=== PATIENT | male | born 1940 | race Caucasian/White ===

== ENCOUNTER → 2019-09-10 13:24 | Outpatient (BNVA) | payer MEDICARE, OTHER, SELFPAY | PROVIDERS: Family Provider Family Medicine; PCP Family Medicine; Visit Provider Emergency Medicine | DX: R68.89 Other general symptoms and signs (principal); J40 Bronchitis, not specified as acute or chronic | CPT/HCPCS: 87400; 87635 ==

== ENCOUNTER 2019-09-13 14:42 | Observation (INO) | payer OTHER, MEDICARE, SELFPAY ==
[2019-09-13] VITALS (8 sets, daily range): BP systolic 125–147; BP diastolic 66–83; PULSE 59–69; RESP 16–18; TEMP 36.6; O2SAT 96–100; BMI 34.0
--- NOTE | 2019-09-13 14:48 | XRR_ITS ---
PROCEDURE INFORMATION: Exam: XR Chest, 1 View Exam date and time: 09/13/2019 2:49 PM Age: 79 years old Clinical indication: Chest pain; Additional info: Syncop TECHNIQUE: Imaging protocol: XR of the chest Views: 1 view. COMPARISON: CR Ribs LEFT w PA Chest [id number] 05/01/2019 11:04 AM FINDINGS: Lungs: 2.0 cm pulmonary nodule or scar in midportion left lung which appears to have increased in size and density. CT chest may be helpful for complete evaluation. Pleural space: Unremarkable. No pleural effusion. No pneumothorax. Heart/Mediastinum: Unremarkable. No cardiomegaly. Bones/joints: Unremarkable. XR/XR chest 1V portable [id number] IMPRESSION: 2.0 cm pulmonary nodule or scar in midportion left lung which appears to have increased in size and density. CT chest may be helpful for complete evaluation.
--- NOTE | 2019-09-13 14:49 | W.ED.SYNCOPE ---
HPI - Syncope General: Chief Complaint: Syncope Stated Complaint: SYNCOPE Time Seen by Provider: 09/13/19 14:48 Source: patient and EMS Mode of arrival: EMS Limitations: no limitations History of Present Illness: HPI narrative: 79-year-old male who states he had 2 new medicines added last week and states he has had 4 syncopal events since then. States that he just feels lightheaded and will pass out. He states today he was getting some out of closet and felt lightheaded and woke up in the floor. He states he has hit his head when he is done this. He denies any chest pain. MD complaint: loss of consciousness Onset (ago): hour(s) -: minutes(s) Prodromal symptoms: lightheaded Associated symptoms: Deny abdominal pain, chest pain, fever(s), headache(s) or nausea Review of Systems Const: Denies: fever, chills, body aches or change in appetite Eyes: Denies: blurry vision or eye discomfort ENMT: Denies: throat pain or dental pain Card: Reports: syncope; Denies: chest pain Resp: Denies: shortness of breath GI: Denies: abdominal pain, nausea, vomiting or diarrhea : Denies: painful urination Musc: Denies: neck pain or back pain Skin/Breast: Denies: rash Neuro: Denies: headache Psych: Denies: depression Dawson/Lymph: Denies: easy bruising All/Imm: Denies: hives [facility] PFSH: Social History (Updated 09/10/19 @ 13:20 by Kerri Cunningham [facility]) Smoking and tobacco status: former smoker Alcohol intake: never Physical Exam Const: COMMON NORMALS: no apparent distress, oriented x3 and healthy appearing HENMT: COMMON NORMALS: normocephalic and head/scalp atraumatic HEAD & SCALP: normocephalic and atraumatic Eye: COMMON NORMALS: PERRL and EOMs intact bilaterally PUPIL: Yes PERRL Neck/C-Spine: COMMON NORMALS: full ROM and supple Chest: COMMONS NORMALS: inspection of chest normal and palpation of chest normal Resp: COMMON NORMALS: normal respiratory effort, no retractions, no use of accessory muscles and clear to auscultation bilaterally AUSCULTATION: clear to auscultation bilaterally Cardio: COMMON NORMALS: regular rate, regular rhythm and no murmurs RATE: regular rate RHYTHM: regular rhythm GI: COMMON NORMALS: normal to inspection, nondistended, normoactive bowel sounds, soft to palpation, non-tender and no masses PALPATION: Yes soft Extremity: COMMON NORMALS: normal to inspection and full ROM Neuro: COMMON NORMALS: oriented x3, moves all extremities and no focal motor deficits Psych: COMMON NORMALS: mental status grossly normal, thought process normal and cooperative THOUGHT PROCESS: normal thought process Skin: COMMON NORMALS: no rashes or lesions noted and no wounds GENERAL SKIN EXAM: no rashes or lesions noted Course Vital Signs: Vital signs: Vital Signs Temperature 97.8 F 09/13/19 14:51 Pulse Rate 59 L 09/13/19 16:00 Respiratory Rate 16 09/13/19 16:00 Blood Pressure 127/66 09/13/19 16:00 Pulse Oximetry 99 09/13/19 16:00 MDM - Syncope MDM Narrative: Medical decision making narrative: Patient presents here with multiple syncopal events over the last week that could be due to starting of his new diuretic and dehydration. Patient has been well-appearing here and I spoke to hospitalist will admit for observation as he has had multiple syncopal events. He has no signs of pulmonary embolism. Patient CT head is negative. Lab Data: Labs: Lab Results 09/13/19 09/13/19 09/13/19 Range/Units 15:07 15:07 15:07 WBC 12.8 H (4.0-10.0) 10^3/ uL RBC 5.40 H (4.1-5.3) 10^6/u L Hgb 15.8 (11.7-16.6) g/dL Hct 48.5 (42.0-52.0) % MCV 89.8 (80-94) fL MCH 29.3 (28.0-34.0) pg MCHC 32.6 (30.0-36.0) g/dL RDW 13.6 (12.1-15.1) % Plt Count 201 (130-400) 10^3/c mm MPV 10.5 H (7.4-10.4) fL Neut % (Auto) 73.9 % Lymph % (Auto) 11.7 % [place] % (Auto) 11.6 % Eos % (Auto) 0.9 % Baso % (Auto) 0.2 % Neut # (Auto) 9.4 H (1.8-7.7) 10^3/u L Lymph # (Auto) 1.5 (0.8-4.8) 10^3/u L [place] # (Auto) 1.5 H (0.2-0.9) 10^3/u L Eos # (Auto) 0.1 (0.0-0.8) 10^3/u L Baso # (Auto) 0.0 (0.0-0.1) 10^3/u L Nucleated RBC % (a uto) 0 % Nucleated RBCs # 0.0 /100WBC PT 14.30 H (10.5-13.3) SECO NDS INR 1.07 (0.8-1.2) Sodium 134 L (136-145) mmol/L Potassium 3.5 (3.5-5.1) mmol/L Chloride 87 L (98-107) mmol/L Carbon Dioxide 32 H (22-29) mmol/L Anion Gap 18.5 (5-19) BUN 64 H (8-23) mg/dL Creatinine 2.3 H (0.7-1.2) mg/dL Glucose 176 H (65-115) mg/dL Calculated Osmolal ity 281 L (285-295) mOsm/k g Calcium 9.6 (8.5-10.5) mg/dL Magnesium 2.9 H (1.7-2.3) mg/dL Total Bilirubin 0.6 (0.15-1.2) mg/dL AST 18 (0-40) U/L ALT 15 (0-41) U/L Alkaline Phosphata se 106 (40-130) IU/L Troponin T Baselin e (0-15) ng/mL Total Protein 7.2 (6.6-8.7) g/dL Albumin 4.4 (3.5-5.2) g/dL Globulin 2.8 (1.3-4.6) g/dL 09/13/19 Range/Units 15:07 WBC (4.0-10.0) 10^3/ uL RBC (4.1-5.3) 10^6/u L Hgb (11.7-16.6) g/dL Hct (42.0-52.0) % MCV (80-94) fL MCH (28.0-34.0) pg MCHC (30.0-36.0) g/dL RDW (12.1-15.1) % Plt Count (130-400) 10^3/c mm MPV (7.4-10.4) fL Neut % (Auto) % Lymph % (Auto) % [place] % (Auto) % Eos % (Auto) % Baso % (Auto) % Neut # (Auto) (1.8-7.7) 10^3/u L Lymph # (Auto) (0.8-4.8) 10^3/u L [place] # (Auto) (0.2-0.9) 10^3/u L Eos # (Auto) (0.0-0.8) 10^3/u L Baso # (Auto) (0.0-0.1) 10^3/u L Nucleated RBC % (a uto) % Nucleated RBCs # /100WBC PT (10.5-13.3) SECO NDS INR (0.8-1.2) Sodium (136-145) mmol/L Potassium (3.5-5.1) mmol/L Chloride (98-107) mmol/L Carbon Dioxide (22-29) mmol/L Anion Gap (5-19) BUN (8-23) mg/dL Creatinine (0.7-1.2) mg/dL Glucose (65-115) mg/dL Calculated Osmolal ity (285-295) mOsm/k g Calcium (8.5-10.5) mg/dL Magnesium (1.7-2.3) mg/dL Total Bilirubin (0.15-1.2) mg/dL AST (0-40) U/L ALT (0-41) U/L Alkaline Phosphata se (40-130) IU/L Troponin T Baselin e 65 H (0-15) ng/mL Total Protein (6.6-8.7) g/dL Albumin (3.5-5.2) g/dL Globulin (1.3-4.6) g/dL Imaging Data^: CXR: Attestation: I personally reviewed and interpreted this imaging study as follows: My impression: no acute abnormality CT Head: Radiologist's impression: [facility] [address] [place] [address] CT Scan Report Signed Patient: Edward Covington Unit #: [id number] : 1940 Age/Sex: 79 / M ADM Date: 09/13/19 Loc: ER Room/Bed: Attending Dr: Ordering Provider/Ordering MD: Josias Poon MD Date of Service: 09/13/19 Procedure(s): CT head wo con* [id number] Accession Number(s): [id number] Report Number: [id number] PROCEDURE INFORMATION: Exam: CT Head Without Contrast Exam date and time: 09/13/2019 2:49 PM Age: 79 years old Clinical indication: Syncope and collapse TECHNIQUE: Imaging protocol: Computed tomography of the head without contrast. Radiation optimization: All CT scans at this facility use at least one of these dose optimization techniques: automated exposure control; mA and/or kV adjustment per patient size (includes targeted exams where dose is matched to clinical indication); or iterative reconstruction. COMPARISON: No relevant prior studies available. RADIATION DOSE METRICS: Total DLP: 759.33 mGy-cm FINDINGS: Brain: Mild to moderate cerebral atrophy and ischemic leukoencephalopathy. Ventricles: Normal. No ventriculomegaly. Bones/joints: Unremarkable. No acute fracture. Sinuses: Visualized sinuses are unremarkable. No fluid levels. Mastoid air cells: Visualized mastoid air cells are well aerated. Soft tissues: Unremarkable. Vasculature: Severe calcified intracranial atherosclerotic vessel disease. CT/CT head wo con* [id number] IMPRESSION: No acute intracranial findings. EKG Data^: EKG 1: Attestation: I personally reviewed and interpreted this EKG as follows: EKG interpretation date: 09/13/19 EKG interpretation time: 15:23 Interpretation: afib hr [address] or t wave abnormalities qrs 97 qtc 412 Discharge Plan Discharge Patient Disposition: Admitted As Inpatient Clinical Impression: Syncope Qualifiers: Syncope type: unspecified Qualified Code(s): R55 - Syncope and collapse Condition: Stable Referrals: Carmelo Leger [Primary Care Provider] - Coding Level of Care Code ED Bilingual Research Interviewer for Chg Fwd Exam Comprehensive
[2019-09-13 15:20] LABS: Basophils % 0.2 %; Eosinophils # 0.1 10^3/uL (0.0-0.8); Eosinophils % 0.9 %; Hematocrit 48.5 % (42.0-52.0); Hemoglobin 15.8 g/dL (11.7-16.6); Lymphocytes # 1.5 10^3/uL (0.8-4.8); Lymphocytes % 11.7 %; Mean Corpuscular HGB Conc 32.6 g/dL (30.0-36.0); Mean Corpuscular Hemoglobin 29.3 pg (28.0-34.0); Mean Corpuscular Volume 89.8 fL (80-94); Mean Platelet Volume 10.5 fL (7.4-10.4); Monocytes # 1.5 10^3/uL (0.2-0.9); Monocytes % 11.6 %; Neutrophils # 9.4 10^3/uL (1.8-7.7); Neutrophils % 73.9 %; Nucleated Red Blood Cells % 0 %; Platelet Count 201 10^3/cmm (130-400); Red Cell Distribution Width 13.6 % (12.1-15.1); White Blood Count 12.8 10^3/uL (4.0-10.0)
[2019-09-13 15:37] LABS: Troponin(5th) Baseline 65 ng/mL (0-15)
[2019-09-13 15:45] LABS: INR 1.07 (0.8-1.2)
[2019-09-13 15:46] LABS: Alanine Aminotransferase 15 U/L (0-41); Albumin Level 4.4 g/dL (3.5-5.2); Alkaline Phosphatase 106 IU/L (40-130); Anion Gap 18.5 (5-19); Aspartate Amino Transferase 18 U/L (0-40); Blood Urea Nitrogen 64 mg/dL (8-23); Calcium 9.6 mg/dL (8.5-10.5); Carbon Dioxide 32 mmol/L (22-29); Chloride 87 mmol/L (98-107); Globulin 2.8 g/dL (1.3-4.6); Glucose 176 mg/dL (65-115); Magnesium 2.9 mg/dL (1.7-2.3); Osmolality Calculated 281 mOsm/kg (285-295); Potassium 3.5 mmol/L (3.5-5.1); Sodium 134 mmol/L (136-145); Total Bilirubin 0.6 mg/dL (0.15-1.2); Total Protein 7.2 g/dL (6.6-8.7)
[2019-09-13] MEDS: sodium chloride 0.9% 500 ML IV (16:11)
--- NOTE | 2019-09-13 16:44 | USCV_ITS ---
Edward Covington Age: 79 Gender: M : 1940 Exam Date: 09/13/2019 17:02 Ordering Phys: Gregorio Herbert MD Technologist: Ashly Stanley Exam Location: [facility] Indication: CHF BP: / HR: Rhythm: Sinus Technical Quality: Suboptimal MEASUREMENTS (Male / Female) Normal Values 2D ECHO LV Diastolic Diameter PLAX 2.4 cm 4.2 - 5.9 / 3.9 - 5.3 cm LV Systolic Diameter PLAX 1.8 cm LV Chamber Size 3.4 cm IVS Diastolic Thickness 1.4 cm 0.6 - 1.0 / 0.6 - 0.9 cm IVS Systolic Thickness 1.9 cm LVPW Diastolic Thickness 1.0 cm 0.6 - 1.0 / 0.6 - 0.9 cm LVPW Systolic Thickness 1.3 cm RV Chamber Size 2.6 cm LVOT Diameter 2.1 cm LV Ejection Fraction 2D Teich 56.3 % LA Diameter 5.7 cm LA Width 3.2 cm LA Height 5.3 cm RA Width 3.2 cm RA Height 5.5 cm Aorta at Sinotubular Diameter 3.0 cm M-MODE LV Diastolic Diameter MM 4.8 cm 4.2 - 5.9 / 3.9 - 5.3 cm LV Systolic Diameter MM 3.1 cm LV Ejection Fraction MM Teich 63.6 % IVS Diastolic Thickness MM 1.3 cm 0.6 - 1.0 / 0.6 - 0.9 cm IVS Systolic Thickness MM 1.5 cm LVPW Diastolic Thickness MM 1.2 cm 0.6 - 1.0 / 0.6 - 0.9 cm LVPW Systolic Thickness MM 1.7 cm RV Diastolic Diameter MM 1.6 cm Aortic Annulus Diameter 4.0 cm LA Ao Ratio MM 1.4 DOPPLER AV Peak Velocity 90.0 cm/s LVOT Peak Velocity 80.0 cm/s AV Area Cont Eq vti 3.8 cm squared AV Area Cont Eq pk 3.2 cm squared MV Area PHT 3.3 cm squared MV E' Velocity 93.0 cm/s TV Peak E Velocity 63.0 cm/s Right Atrial Pressure 3.0 mmHg PV Peak Velocity 101.0 cm/s RV Acceleration Time 0.1 s RV Ejection Time 0.3 s RV AcT/ET 0.3 FINDINGS Left Ventricle Normal left ventricular cavity size. Normal left ventricular systolic function. No regional wall motion abnormalities. Left ventricular ejection fraction is estimated at 63 %. Grade I/IV diastolic dysfunction (abnormal relaxation filling pattern), normal to mildly elevated filling pressures. Right Ventricle The right ventricle is normal in size and function. Right Atrium The right atrium is normal in size. Left Atrium The left atrium is normal in size. Mitral Valve Structurally normal mitral valve without significant stenosis or prolapse. There is no mitral regurgitation. Aortic Valve Structurally normal aortic valve without significant sclerosis or stenosis. There is no aortic regurgitation. Tricuspid Valve Structurally normal tricuspid valve without significant stenosis or regurgitation. Pulmonary artery systolic pressure is normal. Pulmonic Valve Structurally normal pulmonic valve without significant stenosis. There is no pulmonic regurgitation. Pericardium Normal pericardium without effusion. Aorta Normal ascending aorta dimension. CONCLUSIONS 1-Normal left ventricular cavity size. Normal left ventricular systolic function. No regional wall motion abnormalities. Left ventricular ejection fraction is estimated at 63 %. Grade I/IV diastolic dysfunction (abnormal relaxation filling pattern), normal to mildly elevated filling pressures. 2-There is no pericardial effusion. 3-No significant valve abnormalities. 4-Right atrial pressure is around 5 mm of mercury. 5-There are no prior echocardiogram studies to compare. Gregorio Allen MD (Electronically Signed) Final Date: 14 Sep 2019 13:55 S
--- NOTE | 2019-09-13 16:48 | ECG_ITS ---
Measurements Intervals [place] Rate: 63 P: SD: 0 QRS: 24 QRSD: 97 T: 48 QT: 405 QTc: 415 ATRIAL FIBRILLATION ABNORMAL RHYTHM ECG No previous ECG available for comparison Electronically Signed On 09-13-2019 16:24:19 CDT by Gregorio Allen M.D. [email or web address]
--- NOTE | 2019-09-13 16:59 | PM.HP ---
Providers/Chief Complaint Primary Care Provider: Carmelo Leger Chief Complaint: SYNCOPE History of Present Illness Edward Covington is a 79 year old male with past medical history of CKD, atrial fibrillation, on chronic Eliquis, type 2 diabetes mellitus, BPH, laminectomy, dyslipidemia who presented to the ER today after having at least 4 episodes of fall associated with loss of consciousness in the last 10 days. As per patient prior to be falls he had visited his senior design engineering specialist in [place] on August 27 and he was prescribed 2 new medications which were Lyrica and metolazone. He started taking these medications from September 03. He was supposed to be taking metolazone once a week but he was taking it daily as per the instructions on the medication bottle. He had his first fall on September 09. During this time on September 08 he has not visited [facility] clinic for flulike symptoms and was tested for flu COVID-19 and were negative. He was also prescribed dextromethorphan and pseudoephedrine at the clinic which he had not taken till now. All the falls have been unwitnessed. As per the patient most of her falls are followed by loss of consciousness which is transient for 2 to 3 minutes. He does not think this was associated with seizure-like activity, frothing from mouth, bowel or bladder accidents he has noticed dizziness prior to the falls. He denies of having any palpitations, oral flashes of light, headache, chest pain prior to the fluids. Upon regaining consciousness he is never confused more than his baseline but always have mild weakness in his legs sometimes bilateral sometimes only in the left leg. During this falls he has hit his head twice. He has not had bleeding from anywhere. In the ER he was found to have a normal vital signs, blood work showed normal white count and hemoglobin with creatinine of 2.3 with baseline creatinine of 1.9-2.0. His blood pressures at home have been running on the low side since he started taking metolazone. He states his blood pressure at home has been running in 90 systolics. Heart rate has remained stable at around 60s. Review of Systems Const: Denies: fever, chills, body aches, change in appetite, malaise, night sweats, diaphoresis, change in sleep pattern, daytime sleepiness or snoring Eyes: Denies: change in vision, blurry vision, photophobia, eye discomfort or eye discharge ENMT: Denies: throat pain, enlarged tonsils, hoarseness, mouth pain, oral sores/lesions, dry mouth, tinnitus, nasal congestion or post nasal drip Card: Denies: chest pain, palpitations, irregular heart rhythm, edema, swelling of feet/ankles, lightheadedness, syncope, pre-syncope, shortness of breath on exertion, shortness of breath when lying down, leg pain with exertion or bluish discoloration of hands/feet Resp: Denies: shortness of breath, productive cough, non-productive cough, wheezing, stridor, pain on inspiration, change in phlegm color, coughing up blood or chest congestion GI: Denies: abdominal pain, nausea, vomiting, vomiting blood, coffee grounds in vomit, difficulty swallowing, heartburn/indigestion, diarrhea, constipation, bloating, cramping, change in bowel habits, painful bowel movements, blood in stool or black tarry stool : Denies: flank pain, difficulty urinating, painful urination, urinary frequency, urinary urgency, urinary hesitancy, urinary dribbling, difficulty starting urination, change in urine stream, nighttime urination or blood in urine Musc: Denies: neck pain, back pain, extremity pain, joint pain, joint swelling, redness, joint stiffness or limited range of motion Neuro: Reports: weakness in extremities, frequent falls, dizziness and confusion; Denies: headache, numbness in extremities, changes in sensation, lack of coordination, difficulty walking, vertigo, slurred speech, difficulty communicating thoughts or seizure-like activity Psych: Denies: anxiety, depression, mood swings, panic attacks, hopelessness or irritability Endo: Denies: excessive urination, excessive thirst, tired all the time, cold intolerance, excessive sweating, flushing or heat intolerance Dawson/Lymph: Denies: easy bruising or easy bleeding All/Imm: Denies: tongue swelling, facial swelling or acute wheezing Medications/Allergies Home Medications Medication Instructions Recorded Confirmed Last Taken Type alogliptin 12.5 mg tablet 12.5 mg PO DAILY 09/10/19 09/13/19 09/13/19 History apixaban 2.5 mg tablet 2.5 mg PO BID 09/10/19 09/13/19 09/13/19 History furosemide 80 mg tablet 80 mg PO DAILY 09/10/19 09/13/19 09/13/19 History losartan 50 mg tablet 50 mg PO DAILY 09/10/19 09/13/19 09/13/19 History repaglinide 0.5 mg tablet 0.5 mg PO TID 09/10/19 09/13/19 09/13/19 History tamsulosin 0.4 mg capsule 0.8 mg PO DAILY 09/10/19 09/13/19 09/11/19 History tramadol 50 mg tablet 50 mg PO BID PRN 09/10/19 09/13/19 09/13/19 History calcitriol 0.5 mcg PO DAILY 09/13/19 09/13/19 09/13/19 History finasteride 5 mg PO DAILY 09/13/19 09/13/19 09/13/19 History hydromorphone [Dilaudid] 2 mg PO Q6H PRN 09/13/19 09/13/19 09/13/19 History melatonin 10 mg PO BEDTIME PRN 09/13/19 09/13/19 Unknown History rosuvastatin [Crestor] 20 mg PO DAILY 09/13/19 09/13/19 09/12/19 History Allergies Allergy/AdvReac Type Severity Reaction Status Date / Time codeine Allergy unknown Verified 09/13/19 14:57 diltiazem Allergy Unknown Verified 09/13/19 14:57 glipizide Allergy unknown Verified 09/13/19 14:57 metolazone Allergy Unknown Verified 09/13/19 14:57 metopimazine Allergy unknown Verified 09/13/19 14:57 oxycodone [From OxyContin] Allergy unknown Verified 09/13/19 14:57 pregabalin [From Lyrica] Allergy Unknown Verified 09/13/19 14:57 PFSH Acute PFSH: Medical History (Updated 09/13/19 @ 17:18 by Gregorio Herbert MD) Afib CKD (chronic kidney disease) Hypertension Type 2 diabetes mellitus Surgical History (Updated 09/13/19 @ 17:20 by Gregorio Herbert MD) H/O laminectomy History of lumbar fusion Previous back surgery Social History (Updated 09/13/19 @ 17:20 by Gregorio Herbert MD) Smoking and tobacco status: former smoker Alcohol intake: current Alcohol intake frequency: holidays/special occasions only Vitals/I&O/Wt Last Vital Signs Temp 97.8 F 09/13/19 14:51 Pulse 68 09/13/19 16:30 Resp 16 09/13/19 16:30 BP 147/68 09/13/19 16:30 Pulse Ox 100 09/13/19 16:30 Weight last 48 hrs Weight 107.501 kg Physical Exam Narrative: EXAM NARRATIVE: General: No acute distress, AO x3, very pleasant man jovial, dehydrated HEENT: PERRLA, pupils bilaterally equal and reactive Chest: Normal vesicular breath sounds, no added sounds, equal good air entry bilaterally CVS: S1-S2 irregularly irregular, no murmurs, no tachycardia, no gallops, no rubs Abdomen: Soft, nontender, no organomegaly, bowel sounds present Neuro: No focal deficits, no facial deformity, AO x3, power 5/5 in all limbs Data : 09/13/19 15:07 09/13/19 15:07 A&P Assessment and plan (1) Syncope: Status: Acute Qualifiers: Syncope type: unspecified Qualified Code(s): R55 - Syncope and collapse (2) Afib: Status: Acute (3) Hypertension: Status: Acute (4) Type 2 diabetes mellitus: Status: Acute (5) CKD (chronic kidney disease): Status: Acute Additional A&P Information Syncope/falls: Most likely related to new and metolazone which was started. Normal saline bolus medications. History of A. fib rule out arrhythmia or stroke. Seizure unlikely. CT head negative for any acute changes. Cardiac enzymes negative delta. Admit under observation with telemetry. Check prolactin, procalcitonin, urinalysis, proBNP, TSH, echocardiogram, carotid Dopplers, HbA1c, iron panel. Patient looks dehydrated so was started on gentle hydration with normal saline 50 cc/h. Mild leukocytosis. Patient does not have any fever, no infiltrates on chest x-ray. We will hold off any antibiotics for now. Check urinalysis. A. fib: Rate controlled. Home medications not suggestive of any rate control medications. Continue Eliquis at home dose. Telemetry. CKD: Baseline creatinine around 2. 2.3 today. Most likely because of dehydration from the metolazone. Hold metolazone. Check BMP daily. Type 2 diabetes mellitus: Check HbA1c. Hold OHAs. Insulin sliding scale at moderate dose. Full code. Eliquis will help with DVT prophylaxis. Cardiac carb consistent diet. Attestations Medical Necessity Statement*: Less than 2 midnights for syncope under evaluation Time Spent in Patient Care: Greater than 35 minutes (>than 50% of time spent in counselling and/or direct pt care on unit). Coding Level of Care Code [facility] for [facility] Fwd Diagnoses Syncope R55 Syncope type: unspecified Afib I48.91 Hypertension I10 Type 2 diabetes mellitus E11.9 CKD (chronic kidney disease) N18.9
[2019-09-13 17:17] LABS: Procalcitonin 0.08 ng/mL (0-0.5)
[2019-09-13 17:28] LABS: Iron 93 ug/dL (59-158); Percent Saturation 27.9 % (20-50); Total Iron Binding Capacity 333 mcg/dl; Unsaturated Iron Binding 240 ug/dL (112-347)
[2019-09-13 17:46] LABS: Troponin 5 2HR 57.55 ng/mL (0-15)
[2019-09-13 17:50] LABS: Troponin 5 2HR Delta -7.45 ABS# (0-10)
[2019-09-13 17:53] LABS: NT Pro B Type Natriuretic Pept 551 pg/mL (0-450); Prolactin 15.44 ng/mL (4.0-15.2)
[2019-09-13 17:54] LABS: Thyroid Stimulating Hormone 2.29 uIU/mL (0.27-4.20)
[2019-09-13 17:56] LABS: Alcohol Level < 10 mg/dL (0-10)
[2019-09-13 18:14] LABS: Glucose Point of Care 144 mg/dL (70-110)
[2019-09-13] MEDS: sodium chloride 0.9% 1,000 ML 50 ML IV (18:32)
[2019-09-13] MEDS: apixaban 5 mg Tablet 2.5 MG PO (18:32)
[2019-09-13 18:33] LABS: Amphetamines Screen Urine Negative (Negative); Barbiturates Screen Urine Negative (Negative); Benzodiazepines Screen Urine Negative (Negative); Cocaine Screen Urine Negative (Negative); Opiate Screen Urine Positive (Negative); PCP Screen Urine Negative (Negative); THC Screen Urine Negative (Negative)
[2019-09-13 18:43] LABS: Bilirubin Urine Neg (NEGATIVE); Blood Urine Neg (Negative); Glucose Urine UA Norm (Normal); Ketones Urine Negative (Negative); Leukocyte Esterase Urine Negative (Negative); Nitrate Urine Negative (Negative); Protein Urine Neg (Negative); Specific Gravity, Urine 1.005 (1.005-1.030); Urine Appearance Clear (CLEAR); Urine Color Yellow (Yellow); Urobilinogen Urine Norm (Negative); pH Urine 6.5 (5-7)
[2019-09-13 18:45] LABS: Add Urine Culture? No; Bacteria Urine TRACE; Hyaline Casts Urine RARE; Mucus Urine TRACE; RBC Urine 0-4 /hpf (0-2); Squamous Epithelial Cell Urine RARE (0-5); Transitional Epi Cells Urine 0-4 /hpf; WBC Urine 0-4 /hpf (0-5)
[2019-09-13 18:46] LABS: Potassium, Radom Urine 29 mmol/L; Urine Random Chloride 36 mmol/L; Urine Random Sodium 43 mmol/L
[2019-09-13] MEDS: TRAMadol 50 mg Tablet PO (19:24)
--- NOTE | 2019-09-13 19:29 | PC.NURSE ---
Patient upset that his diabetes medication was not ordered. I attempted to explain why doctors sometimes do not order oral diabetes medications and he was being covered with sliding scale insulin. Patient stated No but hell NO he would not take insulin . I said ok and I would pass the message along.
[2019-09-13 21:50] LABS: Troponin 5 6HR 58.49 ng/mL (0-15)
[2019-09-13 21:58] LABS: Troponin 5 6HR Delta -6.51 ng/L (0-12)
[2019-09-13 22:01] LABS: Glucose Point of Care 122 mg/dL (70-110)
[2019-09-13] MEDS: methocarbamol 750 mg Tablet PO (23:04)
--- NOTE | 2019-09-13 23:21 | PC.NURSE ---
Patient threatened to leave [facility] because of his leg cramps. Patient has been updated that i had contacted the doctor about the robaxin and had been given tramadol. Patient had also been asked if heat or anything else helped his cramps he denied. Patient just wanted the robaxin and Dr. Beyer was updated and he put the order in and patient was given the robaxin. Patient was upset that it was not 2 pills but said it would do for now and said he was going to lay down and try to sleep. I apologized for the delay and will continue to alpesh.
[2019-09-14] VITALS: BP 113/67; PULSE 71; RESP 18; TEMP 36.8; O2SAT 97
[2019-09-14 04:00] VITALS: BP 111/65; PULSE 71; RESP 16; TEMP 36.8; O2SAT 95
[2019-09-14] MEDS: TRAMadol 50 mg Tablet PO (04:45)
[2019-09-14 05:55] VITALS: BMI 33.7
--- NOTE | 2019-09-14 05:55 | PC.NURSE ---
production line technician informed me patient refused his morning labs. Will continue to monitor.
[2019-09-14 06:31] LABS: Glucose Point of Care 158 mg/dL (70-110)
[2019-09-14 07:05] VITALS: BP 136/76; PULSE 64; RESP 18; TEMP 36.7; O2SAT 97
[2019-09-14] MEDS: methocarbamol 750 mg Tablet PO (08:24)
[2019-09-14] MEDS: apixaban 5 mg Tablet 2.5 MG PO (08:25)
[2019-09-14 08:26] VITALS: BP 136/76
[2019-09-14] MEDS: losartan 50 mg Tablet PO (08:26)
[2019-09-14] MEDS: FUROsemide 40 mg Tablet 80 MG PO (08:27)
--- NOTE | 2019-09-14 08:31 | PC.RESP ---
Pt refusing breathing treatments. No needs noted in assessment, nebs changed to prn.
--- NOTE | 2019-09-14 09:56 | P.DS_ITS ---
Discharge Providers Date of Admission: 09/13/19 16:30 Date of Discharge: September 14, 2019 Attending Provider at Admission: Gregorio Herbert MD Attending Provider at Discharge: Gregorio Herbert MD Primary Care Provider: Carmelo Leger Diagnoses at Discharge Discharge Diagnosis (1) Syncope: Status: Acute Qualifiers: Syncope type: unspecified Qualified Code(s): R55 - Syncope and collapse (2) Afib: Status: Acute (3) Hypertension: Status: Acute (4) Type 2 diabetes mellitus: Status: Acute (5) CKD (chronic kidney disease): Status: Acute Reason for Visit Reason for Visit: Reason For Visit: SYNCOPE Hospital Course Discharge Summary: Edward Covington is a 79 year old male with past medical history of CKD, atrial fibrillation, on chronic Eliquis, type 2 diabetes olayinka litus, BPH, laminectomy, dyslipidemia who presented to the ER today after having at least 4 episodes of fall associated with loss of consciousness in the last 10 days. 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 He started taking these medications from September 03. He was supposed to be taking metolazone once a week but he was taking it daily as per the instructions on the medication bottle. He had his first fall on September 09. During this time on September 08 he has not visited [facility] for flulike symptoms and was tested for flu COVID-19 and were negative. He was also prescribed dextromethorphan and pseudoephedrine at the clinic which he had not taken till now. All the falls have been unwitnessed. As per the patient most of her falls are followed by loss of consciousness which is transient for 2 to 3 minutes. He does not think this was associated with seizure-like activity, frothing from mouth, bowel or bladder accidents he has noticed dizziness prior to the falls. He denies of having any palpitations, oral flashes of light, headache, chest pain prior to the fluids. Upon regaining consciousness he is never confused more than his baseline but always have mild weakness in his legs sometimes bilateral sometimes only in the left leg. During this falls he has hit his head twice. He has not had bleeding from anywhere. In the ER he was found to have a normal vital signs, blood work showed normal white count and hemoglobin with creatinine of 2.3 with baseline creatinine of 1.9-2.0. His blood pressures at home have been running on the low side since he started taking metolazone. He states his blood pressure at home has been running in 90 systolics. Heart rate has remained stable at around 60s. Patient was admitted to the floors for further work-up of syncope and monitoring with telemetry. During hospitalization echocardiogram was done but patient was refusing every other test. CT head was done which was negative for any acute stroke, bleed, injury. It is quite possible that his symptoms are because of polypharmacy, interaction of medications which he is on specially to the pain clinic and Lyrica and metolazone while his kidney numbers have slightly worsened causing delayed clearance from his blood. Patient was counseled and educated regarding the same and also need of carotid Dopplers at least to rule out ischemic causes but he continues to refuse. Patient needs further work-up for syncope but he is refusing so he is been discharged home in hemodynamically stable condition, neurologically intact at his baseline with suggested lower dose of Dilaudid. Patient is advised to follow-up with his specialist and primary care provider within next 7 to 10 days. Physical Exam Narrative: EXAM NARRATIVE: General: No acute distress, AO x3, agitated, angry HEENT: PERRLA, pupils bilaterally equal and reactive Chest: Normal vesicular breath sounds, no added sounds, equal good air entry bilaterally CVS: S1-S2 irregularly irregular, no murmurs, no tachycardia, no gallops, no rubs Abdomen: Soft, nontender, no organomegaly, bowel sounds present Neuro: No focal deficits, no facial deformity, AO x3, power 5/5 in all limbs Discharge Data Data Completed and Pending: Completed Studies During Hospitalization Category Date Time Status CT head wo con* [id number] Urgent Cat Scan 09/13/19 14:48 Completed XR chest 1V reji ble [id number] Urgent Exams 09/13/19 14:48 Completed Pending at discharge Category Date Time Status MRSA by MEHNAZ nicole Lab 09/13/19 18:07 Ordered CV carotid duplex BI* [id number] Urgent Ultrasound 09/14/19 07:00 Ordered CV echo complete* [id number] Stat Ultrasound 09/13/19 16:44 Taken Labs from last 24 hours 09/14/19 09/13/19 09/13/19 06:23 21:57 21:17 WBC RBC Hgb Hct MCV MCH MCHC RDW Plt Count MPV Neut % (Auto) Lymph % (Auto) Collin % (Auto) Eos % (Auto) Baso % (Auto) Neut # (Auto) Lymph # (Auto) Collin # (Auto) Eos # (Auto) Baso # (Auto) Nucleated RBC % (a uto) Nucleated RBCs # PT INR Sodium Potassium Chloride Carbon Dioxide Anion Gap BUN Creatinine Glucose POC Glucose 158 122 Calculated Osmolal ity Calcium Magnesium Iron TIBC % Saturation Unsat Iron Binding Total Bilirubin AST ALT Alkaline Phosphata se Troponin I 6 Hour 58.49 H Troponin I Hi Sens Del -6.51 L Troponin T Baselin e Troponin T [address] [place] Troponin T NT-Pro-B Natriuret Pep Total Protein Albumin Globulin Procalcitonin TSH Prolactin Urine Color Urine Appearance Urine pH Ur Specific Gravit y Urine Protein Urine Glucose (UA) Urine Ketones Urine Blood Urine Nitrate Urine Bilirubin Urine Urobilinogen Ur Leukocyte Radha ase Urine RBC Urine WBC Ur Squamous Epith Cells Ur Transition Epit h Cell Urine Bacteria Hyaline Casts Urine Mucus Ur Random Sodium Ur Random Potassiu m Ur Random Chloride Urine Opiates Scre en Ur Barbiturates Sc reen Ur Phencyclidine S crn Ur Amphetamines Sc reen U Benzodiazepines Scrn Urine Cocaine Scre en U Marijuana (THC) Screen Ethyl Alcohol 09/13/19 09/13/19 09/13/19 18:11 18:05 18:05 WBC RBC Hgb Hct MCV MCH MCHC RDW Plt Count MPV Neut % (Auto) Lymph % (Auto) Collin % (Auto) Eos % (Auto) Baso % (Auto) Neut # (Auto) Lymph # (Auto) Collin # (Auto) Eos # (Auto) Baso # (Auto) Nucleated RBC % (a uto) Nucleated RBCs # PT INR Sodium Potassium Chloride Carbon Dioxide Anion Gap BUN Creatinine Glucose POC Glucose 144 Calculated Osmolal ity Calcium Magnesium Iron TIBC % Saturation Unsat Iron Binding Total Bilirubin AST ALT Alkaline Phosphata se Troponin I 6 Hour Troponin I Hi Sens Del Troponin T Baselin e Troponin T [address] [place] Troponin T NT-Pro-B Natriuret Pep Total Protein Albumin Globulin Procalcitonin TSH Prolactin Urine Color Yellow Urine Appearance Clear Urine pH 6.5 Ur Specific Gravit y 1.005 Urine Protein Neg Urine Glucose (UA) Norm Urine Ketones Negative Urine Blood Neg Urine Nitrate Negative Urine Bilirubin Neg Urine Urobilinogen Norm Ur Leukocyte Radha ase Negative Urine RBC 0-4 H Urine WBC 0-4 H Ur Squamous Epith Cells Rare Ur Transition Epit h Cell 0-4 Urine Bacteria Trace Hyaline Casts Rare Urine Mucus Trace Ur Random Sodium 43 Ur Random Potassiu m 29 Ur Random Chloride 36 Urine Opiates Scre en Positive H Ur Barbiturates Sc reen Negative Ur Phencyclidine S crn Negative Ur Amphetamines Sc reen Negative U Benzodiazepines Scrn Negative Urine Cocaine Scre en Negative U Marijuana (THC) Screen Negative Ethyl Alcohol 09/13/19 09/13/19 09/13/19 17:24 15:07 15:07 WBC RBC Hgb Hct MCV MCH MCHC RDW Plt Count MPV Neut % (Auto) Lymph % (Auto) Collin % (Auto) Eos % (Auto) Baso % (Auto) Neut # (Auto) Lymph # (Auto) Collin # (Auto) Eos # (Auto) Baso # (Auto) Nucleated RBC % (a uto) Nucleated RBCs # PT INR Sodium Potassium Chloride Carbon Dioxide Anion Gap BUN Creatinine Glucose POC Glucose Calculated Osmolal ity Calcium Magnesium Iron TIBC % Saturation Unsat Iron Binding Total Bilirubin AST ALT Alkaline Phosphata se Troponin I 6 Hour Troponin I Hi Sens Del Troponin T Baselin e Troponin T [address] [place] [address] 57.55 H Delta Troponin T -7.45 L NT-Pro-B Natriuret Pep 551 H Total Protein Albumin Globulin Procalcitonin TSH 2.29 Prolactin 15.44 H Urine Color Urine Appearance Urine pH Ur Specific Gravit y Urine Protein Urine Glucose (UA) Urine Ketones Urine Blood Urine Nitrate Urine Bilirubin Urine Urobilinogen Ur Leukocyte Radha ase Urine RBC Urine WBC Ur Squamous Epith Cells Ur Transition Epit h Cell Urine Bacteria Hyaline Casts Urine Mucus Ur Random Sodium Ur Random Potassiu m Ur Random Chloride Urine Opiates Scre en Ur Barbiturates Sc reen Ur Phencyclidine S crn Ur Amphetamines Sc reen U Benzodiazepines Scrn Urine Cocaine Scre en U Marijuana (THC) Screen Ethyl Alcohol < 10 09/13/19 09/13/19 09/13/19 15:07 15:07 15:07 WBC RBC Hgb Hct MCV MCH MCHC RDW Plt Count MPV Neut % (Auto) Lymph % (Auto) Collin % (Auto) Eos % (Auto) Baso % (Auto) Neut # (Auto) Lymph # (Auto) Collin # (Auto) Eos # (Auto) Baso # (Auto) Nucleated RBC % (a uto) Nucleated RBCs # PT INR Sodium 134 L Potassium 3.5 Chloride 87 L Carbon Dioxide 32 H Anion Gap 18.5 BUN 64 H Creatinine 2.3 H Glucose 176 H POC Glucose Calculated Osmolal ity 281 L Calcium 9.6 Magnesium 2.9 H Iron 93 TIBC 333 % Saturation 27.9 Unsat Iron Binding 240 Total Bilirubin 0.6 AST 18 ALT 15 Alkaline Phosphata se 106 Troponin I 6 Hour Troponin I Hi Sens Del Troponin T Baselin e 65 H Troponin T [address] [place] [address] [place] Troponin T NT-Pro-B Natriuret Pep Total Protein 7.2 Albumin 4.4 Globulin 2.8 Procalcitonin 0.08 TSH Prolactin Urine Color Urine Appearance Urine pH Ur Specific Gravit y Urine Protein Urine Glucose (UA) Urine Ketones Urine Blood Urine Nitrate Urine Bilirubin Urine Urobilinogen Ur Leukocyte Radha ase Urine RBC Urine WBC Ur Squamous Epith Cells Ur Transition Epit h Cell Urine Bacteria Hyaline Casts Urine Mucus Ur Random Sodium Ur Random [place] m Ur Random Chloride Urine Opiates Scre en Ur Barbiturates Sc reen Ur Phencyclidine S crn Ur Amphetamines Sc reen U Benzodiazepines Scrn Urine Cocaine Scre en U Marijuana (THC) Screen Ethyl Alcohol 09/13/19 09/13/19 15:07 15:07 WBC 12.8 H RBC 5.40 H Hgb 15.8 Hct 48.5 MCV 89.8 MCH 29.3 MCHC 32.6 RDW 13.6 Plt Count 201 MPV 10.5 H Neut % (Auto) 73.9 Lymph % (Auto) 11.7 Collin % (Auto) 11.6 Eos % (Auto) 0.9 Baso % (Auto) 0.2 Neut # (Auto) 9.4 H Lymph # (Auto) 1.5 Collin # (Auto) 1.5 H Eos # (Auto) 0.1 Baso # (Auto) 0.0 Nucleated RBC % (a uto) 0 Nucleated RBCs # 0.0 PT 14.30 H INR 1.07 Sodium Potassium Chloride Carbon Dioxide Anion Gap BUN Creatinine Glucose POC Glucose Calculated Osmolal ity Calcium Magnesium Iron TIBC % Saturation Unsat Iron Binding Total Bilirubin AST ALT Alkaline Phosphata se Troponin I 6 Hour Troponin I Hi Sens Del Troponin T Baselin e Troponin T [address] [place] Troponin T NT-Pro-B Natriuret Pep Total Protein Albumin Globulin Procalcitonin TSH Prolactin Urine Color Urine Appearance Urine pH Ur Specific Gravit y Urine Protein Urine Glucose (UA) Urine Ketones Urine Blood Urine Nitrate Urine Bilirubin Urine Urobilinogen Ur Leukocyte Radha ase Urine RBC Urine WBC Ur Squamous Epith Cells Ur Transition Epit h Cell Urine Bacteria Hyaline Casts Urine Mucus Ur Random Sodium Ur Random [place] m Ur Random Chloride Urine Opiates Scre en Ur Barbiturates Sc reen Ur Phencyclidine S crn Ur Amphetamines Sc reen U Benzodiazepines Scrn Urine Cocaine Scre en U Marijuana (THC) Screen Ethyl Alcohol Vitals: Last Vital Signs Temp 98.0 F 09/14/19 07:05 Pulse 64 09/14/19 07:05 Resp 18 09/14/19 07:05 BP 136/76 09/14/19 08:26 Pulse Ox 97 09/14/19 07:05 Discharge Plan Discharge Patient Disposition: Home, Self-Care Condition: Stable Prescriptions: Continued repaglinide 0.5 mg tablet 0.5 mg PO TID RF: 0 Eliquis 2.5 mg tablet 2.5 mg PO BID RF: 0 alogliptin 12.5 mg tablet 12.5 mg PO DAILY RF: 0 losartan 50 mg tablet 50 mg PO DAILY RF: 0 furosemide 80 mg tablet 80 mg PO DAILY RF: 0 tamsulosin 0.4 mg capsule 0.8 mg PO DAILY RF: 0 tramadol 50 mg tablet 50 mg PO BID PRN (Reason: Pain) RF: 0 calcitriol 0.5 mcg Capsule 0.5 mcg PO DAILY RF: 0 finasteride 5 mg Tablet 5 mg PO DAILY RF: 0 Crestor 40 mg Tablet 20 mg PO DAILY RF: 0 melatonin 10 mg Tablet 10 mg PO BEDTIME PRN (Reason: Sleep) RF: 0 Changed Dilaudid 2 mg Tablet 1 mg PO Q6H PRN (Reason: Pain) Qty: 0 RF: 0 Discharge Orders: Discharge Order (Routine); Ordered 09/14/19 Ordered By: Gregorio Herbert Referrals: Carmelo Leger [Primary Care Provider] - 2 weeks ( ) Discharge Diet: Cardiac and Diabetic Discharge Activity: Resume usual activity Patient Instructions: Syncope, Fall Prevention (DC) Activity Restrictions/Additional Instructions: Please check your kidney functions within 1 week. 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 If your symptoms recur please present to the ER so that we can finish the work- up which you have been refusing right now. Discharge Attestations Time Spent in Discharge Care*: greater than 30 min Specific Discharge Activities: Specific discharge activities: educating patient, discussing with caseworker protective services/social workers/dc planners, documenting/other paperwork and evaluating patient/reviewing data Status at Discharge: Cognitive status at discharge: cognitively intact , Behavioral status at discharge: can be uncooperative , Functional status at discharge: independent ambulation Overall status at discharge: patient is back to baseline Quality Metrics Clinical Quality Measures During this hospital stay, did patient experience: None Coding Level of Care Code Acute Detailer for Shaniqua Rodriguez Diagnoses Syncope R55 Syncope type: unspecified Afib I48.91 Hypertension I10 Type 2 diabetes mellitus E11.9 CKD (chronic kidney disease) N18.9
[2019-09-14 11:37] VITALS: BP 136/76
== END 2019-09-14 11:41 | disposition home or self-care (01) ==
LOC: ER 16:31 → MEDSURG 17:21
PROVIDERS: Admitting Provider Student in an Organized Health Care Education/Training Program; Emergency Provider Emergency Medicine; Family Provider Family Medicine; PCP Family Medicine; Visit Provider Student in an Organized Health Care Education/Training Program
DX: R55 Syncope and collapse (principal); I48.91 Unspecified atrial fibrillation; E11.22 Type 2 diabetes mellitus with diabetic chronic kidney disease; I12.9 Hypertensive chronic kidney disease with stage 1 through stage 4 chronic kidney disease, or unspecified chronic kidney disease; N18.9 Chronic kidney disease, unspecified; D72.829 Elevated white blood cell count, unspecified; N40.0 Benign prostatic hyperplasia without lower urinary tract symptoms; Z79.01 Long term (current) use of anticoagulants; Z87.891 Personal history of nicotine dependence
CPT/HCPCS: 12345; 36415; 36416; 70450; 71045; 80053; 80306; 80307; 81001; 82436; 82962; 83540; 83550; 83735; 83880; 84133; 84145; 84146; 84300; 84443; 84484; 85025; 85610; 93005; 93306; 94664; 96360; 97161; 99284; 99285; A9270; G0378; J7030; J7040